=== PATIENT | male | born 1995 | race Caucasian/White ===

== ENCOUNTER 2021-03-03 20:54 | Emergency (ER) | payer MEDICARE, SELFPAY ==
[2021-03-03 21:02] VITALS: BP 157/98; PULSE 91; RESP 16; TEMP 37.2; O2SAT 100; BMI 29.7
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
[2021-03-03] MEDS: metoclopramide 5 mg/mL SDV 2 mL 10 MG IM (21:17)
[2021-03-03] MEDS: diphenhydrAMINE 50 mg/mL SDV 1mL IM (21:17)
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
--- NOTE | 2021-03-04 12:27 | DCPLANNER ---
environmental sustainability manager had message to speak with patient about getting established with a primary care physician. environmental sustainability manager spoke with patients sister, left message to patient to return casey saw operator phone call.
== END 2021-03-03 22:30 | disposition home or self-care (01) ==
PROVIDERS: Emergency Provider Emergency Medicine
DX: S09.8XXA Other specified injuries of head, initial encounter (principal); Y09 Assault by unspecified means
CPT/HCPCS: 70450; 72125; 96372; 99283; J1200; J2765